=== PATIENT | male | born 1960 | race Hispanic/Latino ===

== ENCOUNTER → 2017-10-13 | Day surgery (SDC) | payer OTHER ==
[~2017-10-13] MED LIST: ATORVASTATIN CA40 MG PO; CLOPIDOGREL75 MG PO; EPHEDRINE SULFATE INJ 50 MG/10 ML SYR ONE; FENTANYL CITRATE/PF 100MCG/2 ML INJ ONE; HYOSCYAMINE SULFATE 0.5 MG/ML AMP ONE; LOPRESSOR PO; METOPROLOL TAR100 MG PO; MICARDIS HCT 81 EAC1 PO; MICARDIS HCT 81 EACH PO; MIDAZOLAM HCL 2 MG/2 ML VIAL ONE; PANTOPRAZOLE SO40 MG PO; PROMETHAZINE HC25 M1 PO; PROPOFOL IV EMULSION 10 MG/ML 50 ML VIAL ONE; SUCRALFATE1 GM PO; TYLENOL WITH C1 EACH PO
--- NOTE | 2017-10-13 10:54 | Operative Report ---
DATE OF PROCEDURE: October 13, 2017 REFERRING PHYSICIAN: Dr. Talha Mcdonald. PROCEDURE PERFORMED: Colonoscopy and polypectomy. INDICATIONS FOR COLONOSCOPY: Colorectal cancer screening, personal history of colon polyps MEDICATION: Patient was done under MAC. Please see anesthesiologist's note. PROCEDURE: With patient in the left lateral decubitus position, flexible fiberoptic Olympus colonoscope was inserted into the rectum with ease and advanced all the way to the cecum. Some diverticular disease was noted in the cecum. Overall the prep was suboptimal with moderate amount of retained stool scattered in the colon. The scope was then withdrawn slowly and whatever was visualized of the mucosa overlying the ascending, transverse and descending appeared to be within normal limits. One polyp was snared from the sigmoid colon. One polyp was hot biopsied from the sigmoid colon and 1 polyp was snared and 6 polyps were hot biopsied from the rectum. The scope was then retroflexed into the distal rectum and small internal hemorrhoids were noted, none of which was actively bleeding. The scope was then straightened out. It was subsequently withdrawn. Patient tolerated the procedure well. IMPRESSION: 1. Suboptimal prep. 2. Diverticulosis, cecum. 3. Sigmoid colon polyps times 2, one snared one hot biopsied. 4. Rectal polyps times 7. One snared and 6 hot biopsied. 5. Internal hemorrhoids, none actively bleeding. PLAN: Follow up histology. Initiate high-fiber, low-fat diet. Initiate high-fiber supplement. Due to the suboptimal prep, patient will need a followup colonoscopy in 1 year. Job#: [id number] GH cc:TALHA MCDONALD MD
== END | disposition home or self-care (01) ==
LOC: OR 05:52
PROVIDERS: ATTEND Internal Medicine Gastroenterology
DX: Z12.11 Encounter for screening for malignant neoplasm of colon (principal); K63.5 Polyp of colon; K62.1 Rectal polyp; K57.30 Diverticulosis of large intestine without perforation or abscess without bleeding; K64.8 Other hemorrhoids; K21.9 Gastro-esophageal reflux disease without esophagitis; I25.10 Atherosclerotic heart disease of native coronary artery without angina pectoris; I10 Essential (primary) hypertension; R00.1 Bradycardia, unspecified; Z01.810 Encounter for preprocedural cardiovascular examination; Z79.02 Long term (current) use of antithrombotics/antiplatelets; Z87.891 Personal history of nicotine dependence
CPT/HCPCS: 45384; 45385; 93005; J1980; J2250

== ENCOUNTER → 2017-10-29 | Outpatient (CLI) | payer OTHER ==
[~2017-10-29] MED LIST changes: -EPHEDRINE SULFATE INJ 50 MG/10 ML SYR ONE; -FENTANYL CITRATE/PF 100MCG/2 ML INJ ONE; -HYOSCYAMINE SULFATE 0.5 MG/ML AMP ONE; -MIDAZOLAM HCL 2 MG/2 ML VIAL ONE; -PROPOFOL IV EMULSION 10 MG/ML 50 ML VIAL ONE
--- NOTE | 2017-10-29 09:17 | Diagnostic Imaging Report ---
PROCEDURE:LIVER ULTRASOUND COMPARISON:None. INDICATIONS:HEPATIC STEATOSIS FINDINGS: Liver: 11.2 cm in length in the right midclavicular line. Increased hepatic parenchymal echogenicity. No focal mass. No intrahepatic biliary dilatation. Main portal vein: 0.9 cm in caliber. Hepatopedal flow. Gallbladder: Surgically removed. Common Bile Duct: 0.8 cm in caliber. No echogenic filling defect. Right kidney: 10.6 cm in length. No solid or cystic mass, echogenic calculi, or hydronephrosis. Normal renal cortical echogenicity. Pancreas: The visualized portions of the pancreas are normal. Inferior vena cava: Patent. Aorta: Non-aneurysmal. Ascites: None. CONCLUSION: Increased hepatic parenchymal echogenicity compatible with steatosis. Mild prominence of the common bile duct is likely due to reservoir effect from cholecystectomy. Dictated by: Parth Triplett M.D. on 10/29/2017 at 9:18 Electronically approved by: Parth Triplett M.D. on 10/29/2017 at 9:18
== END ==
LOC: US 06:51
PROVIDERS: ATTEND Internal Medicine Gastroenterology
DX: K76.0 Fatty (change of) liver, not elsewhere classified (principal)
CPT/HCPCS: 76705

== ENCOUNTER 2024-12-29 17:28 | Emergency (ER) | payer OTHER ==
[~2024-12-29] VITALS: Ht 157.5 cm; Wt 66.7 kg
[~2024-12-29 17:28] MED LIST changes: +METOPROLOL TART25 MG PO; +NIFEDIPINE ER30 M1 PO; +PLAVIX75 MG PO; +SPIRONOLACTONE25 MG PO; +VALSARTAN160 MG PO
[2024-12-29 17:45] VITALS: TEMP 97.8
[2024-12-29 18:11] LABS: BASOPHILS % 0.3 % (0.0-1.0); EOSINOPHILS % 0.3 % (0.0-6.0); HEMATOCRIT 42.4 % (38.2-49.6); HEMOGLOBIN 14.7 g/dL (14.0-18.0); LYMPHOCYTES # (AUTO) 2.7 (1.0-3.2); MEAN CORPUSCULAR HEMOGLOBIN 31.1 pg (28-32); MEAN CORPUSCULAR HGB CONC 34.7 g/dL (31-35); MEAN CORPUSCULAR VOLUME 89.8 fL (81-99); MONOCYTES # (AUTO) 0.8 (0.2-0.8); MONOCYTES % 8.5 % (4.4-11.3); NEUTROPHILS # (AUTO) 5.7 (2.1-6.9); NEUTROPHILS % 61.6 % (38.7-80.0); PLATELET COUNT 263 x10e3/uL (140-360); RED BLOOD COUNT 4.72 x10e6/uL (4.3-5.7); RED CELL DISTRIBUTION WIDTH 12.9 % (11.7-14.4); WHITE BLOOD COUNT 9.21 x10e3/uL (4.8-10.8)
[2024-12-29 18:23] LABS: INR 0.88; PROTHROMBIN TIME 12.8 seconds (11.9-14.5)
[2024-12-29 18:24] LABS: PARTIAL THROMBOPLASTIN TIME 31.3 seconds (23.8-35.5)
[2024-12-29 18:32] LABS: ALBUMIN 4.4 g/dL (3.5-5.0); ALBUMIN/GLOBULIN RATIO 1.2 (0.8-2.0); ANION GAP 17.7 mmol/L (8-16); BILIRUBIN,TOTAL 0.7 mg/dL (0.2-1.2); CALCIUM 8.9 mg/dL (8.4-10.2); CREATININE, SERUM 1.15 mg/dL (0.72-1.25); MAGNESIUM 2.4 MG/DL (1.3-2.1); POTASSIUM 3.7 mmol/L (3.5-5.1); TOTAL PROTEIN 8.1 g/dL (6.5-8.1)
[2024-12-29 18:37] LABS: TROPONIN I 0.005 ng/mL (0-0.300)
[2024-12-29 20:33] LABS: BILIRUBIN,URINE NEGATIVE (NEGATIVE); CLARITY,URINE CLEAR (CLEAR); COLOR,URINE STRAW (YELLOW); GLUCOSE, URINE NEGATIVE (NEGATIVE); KETONES,URINE NEGATIVE (NEGATIVE); LEUKOCYTE ESTERASE ,URINE NEGATIVE (NEGATIVE); NITRITE,URINE NEGATIVE (NEGATIVE); PH,URINE 6.5 (5 - 7); PROTEIN,URINE DIPSTICK NEGATIVE (NEGATIVE); URINE UROBILINOGEN 0.2 mg/dL (0.2 - 1)
[2024-12-29] MEDS ORDERED: SODIUM CHLORIDE 0.9% 100 ML ONE (20:39)
[2024-12-29] MEDS ORDERED: IOPAMIDOL 370 MG/ML 100 ML INFUS..BTL INJ ONE (20:40)
[2024-12-29 20:45] VITALS: PULSE 66; RESP 11
[2024-12-29] MEDS ORDERED: VALTREX1000 MG PO (21:28)
[2024-12-29] MEDS ORDERED: MEDROL4 M2 PO (21:28)
[2024-12-29 21:47] VITALS: BP 169/84; PULSE 68; RESP 18; TEMP 98.6; O2SAT 98
== END 2024-12-29 21:52 | disposition home or self-care (01) ==
LOC: ER 18:22
DX: G51.0 Bell's palsy (principal); I10 Essential (primary) hypertension; E11.9 Type 2 diabetes mellitus without complications
CPT/HCPCS: 36415; 70496; 70498; 71045; 80053; 81001; 82550; 83735; 84484; 85025; 85610; 85730; 93005; 99284; J7050; Q9967